=== PATIENT | female | born 1945 | race African-American/Black ===

== ENCOUNTER 2021-11-17 11:35 | Inpatient (IN) | payer OTHER ==
[2021-11-17] MEDS ORDERED: POLYETHYLENE GLYCOL 3350 255 GM BTL PO ONE (13:46)
[2021-11-17 13:51] VITALS: BMI 22.1
[2021-11-17] MEDS ORDERED: BISACODYL 5 MG TABLET.DR (FP) PO ONE (14:30)
[2021-11-17] MEDS: metroNIDAZOLE 500 MG TABLET PO SCH ×3 (15:40→21:18)
[2021-11-17] MEDS: NEOMYCIN SO4 500 MG TABLET PO SCH ×3 (15:40→21:19)
[2021-11-17 20:16] LABS: BASO % 0.7 % (0-2.0); EOS % 0.6 % (0-4.5); HEMATOCRIT 42.6 % (32.4-45.2); LYMPH % 39.6 % (8-40); MCH 28.3 pg (25.7-33.7); MCHC 32.8 g/dl (32.0-36.0); MEAN CELL VOLUME 86.4 fl (80-96); MONO % 9.6 % (3.8-10.2); NEUT % 49.5 % (42.8-82.8); PLATELET COUNT 286 10^3/uL (134-434); RBC 4.93 M/mm3 (3.60-5.2); RDW 13.8 % (11.6-15.6); WHITE BLOOD COUNT 5.4 K/mm3 (4.0-10.0)
[2021-11-17 20:28] LABS: ACTIVATED PTT 34.8 SECONDS (25.2-36.5); INR 1.21 (0.83-1.09); PROTHROMBIN TIME (PATIENT) 13.9 SEC (9.7-13.0)
[2021-11-17 20:38] LABS: ALBUMIN 4.4 g/dl (3.4-5.0); BLOOD UREA NITROGEN 7.6 mg/dL (7-18)
[2021-11-17 20:41] LABS: CREATININE 0.9 mg/dL (0.55-1.3)
[2021-11-17 20:42] LABS: TOT PROT 8.2 g/dl (6.4-8.2)
[2021-11-17] MEDS ORDERED: PANTOPRAZOLE 40 MG TABLET PO ONE (21:23)
[2021-11-17] MEDS: INSULIN SLIDING SCALE (NOVOLOG) 1 VIAL SQ SCH (21:44)
[2021-11-18] MEDS: INSULIN SLIDING SCALE (NOVOLOG) 1 VIAL SQ SCH ×3 (06:14→21:20)
[2021-11-18] MEDS ORDERED: BUPIVACAINE HCL/PF 0.25% (2.5MG/ML) 10 ML VIAL ONE (11:56)
[2021-11-18] MEDS ORDERED: ONDANSETRON 4 MG/2 ML VIAL IVPUSH PRN ×2 (12:08→17:17)
[2021-11-18] MEDS ORDERED: PROPOFOL 20 ML ONE (12:12)
[2021-11-18] MEDS ORDERED: MIDAZOLAM HCL 2 MG/2 ML SINGLE DOSE VIAL ONE (12:12)
[2021-11-18] MEDS ORDERED: ROCURONIUM BROMIDE 50 MG/5 ML SYRINGE ONE ×2 (12:12→14:32)
[2021-11-18] MEDS ORDERED: HYDROmorphone HCl 2 MG/ML VIAL ONE (12:12)
[2021-11-18] MEDS ORDERED: LACTATED RINGERS SOLUTION 1,000 ML IV SCH (12:15)
[2021-11-18] MEDS ORDERED: CEFOXITIN SODIUM 1 GM IVPB ONE (13:17)
[2021-11-18] MEDS ORDERED: cefOXitin SODIUM 1 GM VIAL (RESTRICTED TO ID) IVPB ONE (13:20)
[2021-11-18] MEDS ORDERED: NEOSTIGMINE METHYLSULFATE 0.5 MG/ML - 10 ML MDV ONE (16:47)
[2021-11-18] MEDS ORDERED: BUPIVACAINE HCL/PF 0.25% (2.5MG/ML) 10 ML VIAL IJ ONE ×2 (17:00)
[2021-11-18] MEDS ORDERED: oxyCODONE HCL 5 MG TABLET PO PRN ×2 (17:17)
[2021-11-18] MEDS ORDERED: IBUPROFEN 800 MG/8 ML IJ IVPB ONE (17:49)
[2021-11-18] MEDS: IBUPROFEN 800 MG/8 ML IJ IVPB SCH (18:08)
[2021-11-18] MEDS: LACTATED RINGERS SOLUTION 1,000 ML IV SCH (21:20)
[2021-11-19] MEDS: IBUPROFEN 800 MG/8 ML IJ IVPB SCH ×3 (01:22→18:45)
[2021-11-19] MEDS: INSULIN SLIDING SCALE (NOVOLOG) 1 VIAL SQ SCH ×4 (06:00→21:32)
[2021-11-19 09:21] LABS: HEMATOCRIT 36.2 % (32.4-45.2); HEMOGLOBIN 11.6 GM/dL (10.7-15.3); MCH 27.5 pg (25.7-33.7); MCHC 32.1 g/dl (32.0-36.0); MEAN CELL VOLUME 85.7 fl (80-96); MEAN PLT VOLUME 8.6 fl (7.5-11.1); PLATELET COUNT 233 10^3/uL (134-434); RBC 4.23 M/mm3 (3.60-5.2); RDW 14.5 % (11.6-15.6); WHITE BLOOD COUNT 9.9 K/mm3 (4.0-10.0)
[2021-11-19] MEDS ORDERED: PATIENT'S OWN MEDICATION (NON-FORMULARY) (Albuterol Sulfate [Proair Digihaler] 90 MCG Aer. IH SCH (09:30)
[2021-11-19] MEDS: ENOXAPARIN NA (PORCINE) 40 MG/0.4 ML DISP.SYRIN SQ SCH (09:45)
[2021-11-19] MEDS ORDERED: MOMETASONE FUROATE IH SCH (09:45)
[2021-11-19 09:54] LABS: BLOOD UREA NITROGEN 9.7 mg/dL (7-18); CALCIUM 8.8 mg/dL (8.5-10.1)
[2021-11-19 09:57] LABS: CREATININE 0.8 mg/dL (0.55-1.3)
[2021-11-19 09:59] LABS: BILIRUBIN,TOTAL 1.3 mg/dL (0.2-1)
[2021-11-19 10:00] LABS: TOT PROT 5.9 g/dl (6.4-8.2)
[2021-11-19] MEDS: LACTATED RINGERS SOLUTION 1,000 ML IV SCH ×2 (10:37→18:59)
[2021-11-20] MEDS: IBUPROFEN 800 MG/8 ML IJ IVPB SCH ×3 (01:25→16:25)
[2021-11-20] MEDS: INSULIN SLIDING SCALE (NOVOLOG) 1 VIAL SQ SCH ×4 (06:51→22:13)
[2021-11-20] MEDS: ENOXAPARIN NA (PORCINE) 40 MG/0.4 ML DISP.SYRIN SQ SCH (09:40)
[2021-11-20 10:02] LABS: HEMATOCRIT 34.6 % (32.4-45.2); HEMOGLOBIN 11.1 GM/dL (10.7-15.3); MCH 27.7 pg (25.7-33.7); MEAN CELL VOLUME 86.7 fl (80-96); MEAN PLT VOLUME 8.5 fl (7.5-11.1); PLATELET COUNT 243 10^3/uL (134-434); RBC 3.99 M/mm3 (3.60-5.2); RDW 14.1 % (11.6-15.6); WHITE BLOOD COUNT 8.8 K/mm3 (4.0-10.0)
[2021-11-20 10:52] LABS: CALCIUM 8.7 mg/dL (8.5-10.1)
[2021-11-20 10:53] LABS: ALBUMIN 2.9 g/dl (3.4-5.0); MAGNESIUM 2.1 mg/dL (1.8-2.4)
[2021-11-20 10:55] LABS: BLOOD UREA NITROGEN 4.2 mg/dL (7-18); PHOSPHOROUS 2.3 mg/dL (2.5-4.9)
[2021-11-20 10:57] LABS: BILIRUBIN,TOTAL 1.2 mg/dL (0.2-1); TOT PROT 5.7 g/dl (6.4-8.2)
[2021-11-20 10:58] LABS: CREATININE 0.7 mg/dL (0.55-1.3)
[2021-11-20] MEDS ORDERED: MOMETASONE FUROATE IH SCH (11:03)
[2021-11-20] MEDS: ACETAMINOPHEN 500 MG TABLET (FP) PO SCH ×3 (11:20→20:43)
[2021-11-20] MEDS ORDERED: ALBUTEROL SULFATE 90 MCG IH PRN (13:23)
[2021-11-20] MEDS ORDERED: ALBUTEROL SO4 HFA INHALER IH PRN (13:59)
[2021-11-20] MEDS: MOMETASONE FUROATE 110 MCG/IH INHALER IH SCH (16:27)
[2021-11-20] MEDS: LACTATED RINGERS SOLUTION 1,000 ML IV SCH (20:34)
[2021-11-20] MEDS: FAMOTIDINE 20 MG TABLET PO SCH ×2 (20:50→20:51)
[2021-11-21 00:17] VITALS: RESP 18
[2021-11-21] MEDS: IBUPROFEN 800 MG/8 ML IJ IVPB SCH ×2 (00:54→09:40)
[2021-11-21] MEDS: ACETAMINOPHEN 500 MG TABLET (FP) PO SCH ×2 (03:00→11:11)
[2021-11-21] MEDS: INSULIN SLIDING SCALE (NOVOLOG) 1 VIAL SQ SCH ×2 (06:38→11:11)
[2021-11-21 08:18] LABS: HEMATOCRIT 31.6 % (32.4-45.2); HEMOGLOBIN 10.4 GM/dL (10.7-15.3); MCH 27.9 pg (25.7-33.7); MCHC 32.8 g/dl (32.0-36.0); MEAN CELL VOLUME 85.2 fl (80-96); MEAN PLT VOLUME 8.6 fl (7.5-11.1); PLATELET COUNT 228 10^3/uL (134-434); RBC 3.71 M/mm3 (3.60-5.2); RDW 13.8 % (11.6-15.6); WHITE BLOOD COUNT 6.5 K/mm3 (4.0-10.0)
[2021-11-21 08:52] LABS: CALCIUM 8.7 mg/dL (8.5-10.1)
[2021-11-21 08:53] LABS: ALBUMIN 2.7 g/dl (3.4-5.0)
[2021-11-21 08:56] LABS: CREATININE 0.6 mg/dL (0.55-1.3)
[2021-11-21 08:57] LABS: BILIRUBIN,TOTAL 1.2 mg/dL (0.2-1); TOT PROT 5.6 g/dl (6.4-8.2)
[2021-11-21] MEDS: LACTATED RINGERS SOLUTION 1,000 ML IV SCH (09:18)
[2021-11-21] MEDS: ENOXAPARIN NA (PORCINE) 40 MG/0.4 ML DISP.SYRIN SQ SCH (09:22)
[2021-11-21] MEDS: MOMETASONE FUROATE 110 MCG/IH INHALER IH SCH (09:25)
[2021-11-21] MEDS ORDERED: FAMOTIDINE 20 MG TABLET PO SCH (10:00)
[2021-11-21 10:36] VITALS: BP 115/76; PULSE 76
[2021-11-21 15:07] VITALS: TEMP 98.5
== END 2021-11-21 15:55 | disposition home health service (06) | DRG 337 ==
LOC: JASU-SURG 11:35 → JASUSAT 11:35 → J2C 13:31 → J5S 18:43
PROVIDERS: ADMIT Surgery; ATTEND Internal Medicine
PROC: 0DN84ZZ Release Small Intestine, Percutaneous Endoscopic Approach (ICD-10-PCS; 2021-11-18)
PROC: 0DNG4ZZ Release Left Large Intestine, Percutaneous Endoscopic Approach (ICD-10-PCS; 2021-11-18)
PROC: 0DNW4ZZ Release Peritoneum, Percutaneous Endoscopic Approach (ICD-10-PCS; 2021-11-18)
PROC: 0DSN4ZZ Reposition Sigmoid Colon, Percutaneous Endoscopic Approach (ICD-10-PCS; principal; 2021-11-18 09:00)
DX: Z43.3 Encounter for attention to colostomy (principal); J45.909 Unspecified asthma, uncomplicated; E11.9 Type 2 diabetes mellitus without complications; I10 Essential (primary) hypertension; K66.0 Peritoneal adhesions (postprocedural) (postinfection)
CPT/HCPCS: 36415; 71046-TC-FY; 80053; 82962; 83735; 84100; 84484; 85025; 85027; 85610; 85730; 86140; 86850; 86900; 86901; 88304-TC; 88307-TC; 93005; 93010; 93306-TC; 94760; 97116-GP; 97161-GP